=== PATIENT | female | born 1995 | race Caucasian/White ===

== ENCOUNTER 2022-03-04 11:08 | Outpatient (CLI) | payer OTHER, SELFPAY ==
--- NOTE | ~2022-03-04 | XR_ITS ---
EXAMINATION: XR barium swallow DATE: 03/04/2022 12:42 CDT INDICATION: Emesis. TECHNIQUE: Thick barium contrast with gas effervescent crystals were administered orally. Fluoroscop ic images of the esophagus were obtained in various projections. The hypopharynx was also examined. T hereafter, overhead images of the thoracic esophagrus were performed. Fluroscopy time 0.4 minutes.Dap 9.4 FINDINGS: The esophagus is normal in caliber, without mucosal lesions or strictures. There is normal esophageal peristalsis. There is no hiatal hernia. No discreet episode of gastroesophageal reflux i s seen during the course of this study. IMPRESSION: 1. Normal barium esophagram. Reviewed, dictated and finalized at location A.
== END 2022-03-04 11:09 | disposition home or self-care (01) ==
PROVIDERS: PCP Family Medicine; Visit Provider Family Medicine
DX: K30 Functional dyspepsia (principal)
CPT/HCPCS: 74220

== ENCOUNTER 2022-03-06 09:12 | Outpatient (CLI) | payer OTHER, SELFPAY ==
--- NOTE | ~2022-03-06 | NM_ITS ---
EXAM: NM gastric emptying study DATE: 03/06/2022 14:10 CDT INDICATION: Persistent vomiting and indigestion after meals. TECHNIQUE: A gastric emptying study was performed using the methodology of Jes DESIR, et al. J Nucl Med 2007; 48:568-572. The patient was given a meal consisting of 2 scrambled eggs labeled with 1.06 mCi Tc-99m sulfur colloid, 2 slices of toast, two packages of jam, and approximately 120 mL of water. Simultaneous anterior and posterior 1-min images of the abdomen were obtained with the patient supin e at multiple time points over a total period of 4 hours. The geometric mean of anterior and posterio r views was determined, and the percentage retention was calculated for each time point. COMPARISON: None. FINDINGS: Gastric retention of the radiotracer-labeled meal was 39%, 25%, and 7% at the 1-hour, 2-ho ur, and 4-hour time points, respectively. With this technique, apparent rapid gastric emptying is sug gested by <30% gastric retention at 1 hour. Delayed gastric emptying is defined by gastric retention of >90% at 1 hour, >60% retention at 2 hours, or >10% retention at 4 hours. IMPRESSION: 1. Normal gastric emptying. Reviewed, dictated and finalized at location A. IMPRESSION: 1. Normal gastric emptying.
== END 2022-03-06 09:13 | disposition home or self-care (01) ==
LOC: ANHIMG 09:13
PROVIDERS: PCP Family Medicine; Visit Provider Family Medicine
DX: K30 Functional dyspepsia (principal); R11.15 Cyclical vomiting syndrome unrelated to migraine
CPT/HCPCS: 78264; A9541

== ENCOUNTER 2022-04-09 08:00 | Outpatient (CLI) | payer OTHER, SELFPAY ==
--- NOTE | 2022-04-24 10:14 | WPDHOMESLEEP ---
Sleep Study - Home Unattended Date of Study: 04/09/22 Ordering Provider: Eve Raymond DO Interpreting Provider: Eve Raymond DO Home Sleep Study Type: Apnea Link Air Height: 1.68 m Weight: 111.13 kg Body Mass Index: 39.5 Neck Circumference (inches): 15 [place]: 10 Reason for Sleep Study Daytime hypersomnia Sleep History The patient is a 27-year-old female with anxiety, depression, PTSD, nightmares, GERD, migraines and history of tobacco use that had a sleep study ordered for evaluation of sleep apnea. The patient denies awakening from sleep short of breath. She constantly awakens at night with heartburn, belching or cough. She constantly snores loud enough that others complain. She constantly has trouble sleeping she has a cold. She denies waking up gasping for air throughout the night. She denies having breathing problems at night observed by herself or others. He frequently sweats excessively at night. She denies having heart palpitations or irregular heartbeats during the night. She constantly falls asleep during the day but never while driving. She occasionally experiences loss of muscle tone when extremely emotional. She constantly has to work or school due to sleepiness. She denies feeling unable to move while waking up or falling asleep. She occasionally experiences vivid dreamlike scenes upon awakening or falling asleep. She denies feeling afraid of going to sleep. She constantly has nightmares. She occasionally remembers her dreams. She rarely has thoughts racing through her mind. She occasionally feels sad or depressed. She constantly has anxiety. She constantly has muscular tension. She constantly notices parts of her body jerk. She denies kicking during the night. She rarely has crawling and aching feelings in her legs but occasionally has leg pain during the night. She denies grinding her teeth during sleep and awakening with morning jaw pain. She is rarely bothered by pain during the day but never awakened by pain during the night. She rarely wakes up feeling stiff in the morning. She rarely wakes up with sore achy muscles. She rarely wakes up with pain in the neck, spine or other joints. She goes to bed between 10-11 p.m. on weekdays and between 11:00 p.m. to 1:00 a.m. on weekends. Takes her 15-30 minutes to fall asleep. He wakes up 3-4 times throughout the night to urinate. She is able to fall back asleep within 5-15 minutes. She wakes up between 6-7 a.m. on weekdays and between 8-10 a.m. on the weekends. She typically gets 6-8 hours of sleep per night. He does not stay in bed after waking up in the morning she currently lives with her father, isabel and 8-year-old son. She does not consume any caffeinated beverages within 2 hours of bedtime. She does not engage in physical exercise before bedtime. She will watch television before falling asleep. She will take naps in afternoon or the evening but they are not refreshing. She drinks 1 caffeinated beverage per day. She quit smoking cigarettes 5 years ago. She denies alcohol use. She currently uses marijuana. [facility] Past Medical History Medical History Anxiety GERD (gastroesophageal reflux disease) Headache Family History Family History Father Depression Hypertension Sibling Alcoholism Hypertension Depression Grandparent Cerebrovascular accident Thyroid disorder Social History Social History Smoking status: Former smoker Smoking end date: 06/15/18 Alcohol intake: current Substance use: current Substance use type: marijuana Medications Home Medications Medication Instructions Recorded Confirmed Type bupropion HCl 300 mg 24 hr tablet, 300 mg PO QAM 02/26/22 02/26/22 History extended release (Wellbutrin XL) clonazepam
[2022-04-24 10:25] VITALS: BMI 39.5
--- NOTE | 2022-09-23 11:28 | SLEEP ---
pt was not set up previously with machine phoned [facility] they phoned pt she now has a cpap set up appt at 245 pm 09/23/2022
== END 2022-04-10 14:52 | disposition home or self-care (01) ==
LOC: ANHCSM 08:01
PROVIDERS: PCP Family Medicine; Visit Provider Family Medicine
DX: G47.10 Hypersomnia, unspecified (principal); G47.33 Obstructive sleep apnea (adult) (pediatric)
CPT/HCPCS: 95806

== ENCOUNTER 2024-11-07 09:46 | Emergency (ER) | payer OTHER, SELFPAY ==
--- NOTE | ~2024-11-07 | XR_ITS ---
HISTORY: knee pain COMPARISON: None TECHNIQUE: 3 views of the left knee were performed FINDINGS: No acute or subacute fracture, erosion, lytic or sclerotic lesion. Trace medial tibiofemoral joint space narrowing is identified. No suprapatellar joint effusion is identified. The infrapatellar joint space is clear. IMPRESSION: Trace medial tibiofemoral joint space narrowing, without acute fracture. Reviewed, dictated and finalized at location A. IMPRESSION: Trace medial tibiofemoral joint space narrowing, without acute fra cture.
[2024-11-07 09:47] VITALS: BP 143/92; PULSE 99; RESP 20; TEMP 36.4; O2SAT 100
--- OUTSIDE RECORDS SUMMARY | 2024-11-07 09:48 | XMS_ITS | Clinical Summary ---
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 Gender Identity Not on file Sexual Orientation Not on file Plan of Treatment Health Maintenance Due Date Last Done Comments Hepatitis C Virus (HCV) Screening 1996 TdaP Immunization 1996 Hepatitis B Immunization (1 of 3 - 19+ 3-dose series) 2015 Pap Smear 2017 Influenza Immunization (#1) 2024 SARS-COV-2 Immunization ( season) 2024 Respiratory Syncytial Virus (RSV) Immunization (Adult) (1 - 1-dose 75+ series) 2071 Meningococcal Immunization (ACWY) Aged Out No longer eligible based on patient's age to complete this topic Pneumococcal Immunization Combined Aged Out No longer eligible based on patient's age to complete this topic Rotavirus Immunization Aged Out No lo nger eligible based on patient's age to complete this topic
--- OUTSIDE RECORDS SUMMARY | 2024-11-07 09:48 | XMS_ITS | Clinical Summary ---
Author Organization [facility] Address [address] [place] [address] Care Team Providers Care Automotive Hardware Engineer Name Role Phone Unavailable Primary Care Provider Unavailabl e Source Comments [facility],non-owned Affiliates and Associated Physician Practices is amultiple site organization consisting of ambulatory clinics and hospital sitesin [place], [place], [place] and [place]. This disclosure is being madepursuant to the Care Everywhere program and may not contain all information available regarding this patient. Last updated [email or web address] [facility] Allergies No known active allergies Medications * Be aware that medications may not be up to date on this document. Alwaysverify current medications with the patient. prazosin (MINIPRESS) 2 MG capsule Take 2 mg by mouth at bedtime Active clonazePAM (KLONOPIN) 0.5 MG tablet Take 1 mg by mouth as directed 1 mg AM, 1 mg Afternoon, 2mg PM Active topiramate (TOPAMAX) 50 MG tablet Take 50 mg qhs x 1 week and then 50 mg BID 60 tablet 5 8 Active Additional Information Patient not taking.Reported on 02/10/2019 tranexamic acid (LYSTEDA) 650 MG tablet Take 2 tablets by mouth 3 times daily 90 tablet 11 9 Active Additional Information Patient not taking.Reported on 02/27/2020 ondansetron, disintegrating, (ZOFRAN ODT) 8 MG tablet Take 1 tablet by mouth every 6 hours as needed for Nausea/Vomiting Allow tablet to dissolve on the tongue 20 tablet 2 9 Active Additional Information Patient not taking.Reported on 02/27/2020 lamoTRIgine (LAMICTAL) 200 MG tablet Take 1 tablet by mouth once daily 0 Active venlafaxine XR 24hr (EFFEXOR XR) 150 MG capsule 0 Active Active Problems Problem Noted Date Diagnosed Date Heart abnormality 09/28/2019 Migraine 03/02/2019 Heartburn 03/02/2019 Sacral radiculopathy 03/02/2019 Fatigue 06/01/2017 Pain of both hip joints 06/01/2017 Positive SAMMY (antinuclear antibody) 06/01/2017 Syncope 12/29/2013 Assessment & Plan (12/29/2013 2:43 PM CDT): IMPRESSION Anyi is a 18 year-old with: 1. Structurally normal heart by exam, ECG, and echocardiogram. A. Mild aortic regurgitation. 2. Probable vasovagal syncope. PLAN Anyi has a structurally normal heart by exam, ECG, and echocardiogram, with the incidental finding of mild aortic regurgitation (which I cannot hear on exam, and which is unrelated to her syncope). Her syncope is likely consistent with vasovagal syncope in that the episode has a typical prodrome of nausea, feeling warm, and dizziness. Her normal cardiac evaluation today is very reassuring. I emphasized the importance of maintaining adequate hydration, especially during the summer months and during times of acute illnesses. She does complain of daily palpitations, for which I had her go home wearing a Holter monitor to exclude any arrhythmias; I will follow up with her once I review the monitor. Finally, I also ordered a fasting lipid profile given her family history of early myocardial infarction and her vague episode of hemiparesis last winter. I asked her to return to clinic in 1 years' time to follow up on her aortic regurgitation with an ECG and echocardiogram. In the meantime, she has no restrictions from a cardiovascular standpoint regarding routine care or activity. SBE prophylaxis is not indicated. Family History Medical History Relation Name Comments Migraine Mother Relation Name Status Comments Father Alive Mother Alive Social History Tobacco Use Types Packs/Day Years Used Date Smoking Tobacco: Light Smoker Cigarettes 0.3 3 Smokeless Tobacco: Never Tobacco Cessation:Ready to Q uit: No; Counseling Given: Yes Alcohol Use Standard Drinks/Week Comments No 0 (1 standard drink = 0.6 oz pur e alcohol) Comments Unknown Sex and Gender Information Value Date Recorded Sex Assigned at Not on file Legal Sex Female 4:02 PM CDT Gender Identity Not on file Sexual Orientation Not on file Last Filed Vital Signs Vital Sign Reading Time Taken Comments Blood Pressure 120/80 03/02/2019 1:59 PM CDT Pulse 62 12/15/2017 10:03 AM CDT Temperature 36.2 C (97.2 F) 12/15/2017 10:03 AM CDT Respiratory Rate 20 07/14/2017 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 Oxygen Saturation 98% 07/27/2017 4:46 PM ASSISTANT PROFESSOR OF FORESTRY Inhaled Oxygen Concentration - - Weight 98.9 kg (218 lb) 03/04/2019 4:13 PM CDT Height 165.1 cm (5' 5) 03/02/2019 1:59 PM CDT Body Mass Index 36.28 03/02/2019 1:59 PM CDT Plan of Treatment Health Maintenance Due Date Last Done Comments HIV SCREENING 2011 DTAP/TDAP/TD VACCINES (1 - Tdap) 2015 HEPATITIS B VACCINE (1 of 3 - 19+ 3-dose series) 2015 COVID-19 VACCINE (1 - 2023-2 5 season) 2024 DEPRESSION SCREENING 06/15/2024 INFLUENZA VACCINE (Season Ended) 2025 ZOSTER VACCINE (1 of 2) 2046 HEPATITIS C SCREENING Completed 02/16/2020 , 07/09/2017 HIB VACCINE Aged Out No longer eligi ble based on patient's age to complete this topic HPV VACCINE Aged Out No longer eligi ble based on patient's age to complete this topic MENINGOCOCCAL (Group B) VACCINE SHARED DECISION-MAKING Aged Out No longer eligible based on patient's age to complete this topic MENINGOCOCCAL GROUPS A/C/Y/W VACCINE Aged Out No longer eligible b ased on patient's age to complete this topic PNEUMOCOCCAL VACCINE Aged Out No long er eligible based on patient's age to complete this topic Procedures Procedure Name Priority Date/Time Associated Diagnosis Comments HEPATITIS C AB W RFLX VERIFICATION Routine 02/16/2020 12:31 PM CDT Positive SAMMY (antinuclear antibody) Myalgia Other fatigue Polyarthralgia from Last 3 Months or Most Recently Relevant to Health Maintenance Results * HEPATITIS C AB W RFLX VERIFICATION (02/16/2020 12:31 PM CDT) Hepatitis C Antibody <0.1 0.0 - 0.9 s/co ratio 02/17/2020 10:10 AM CDT [facility] ([facility]) Blood BLOOD SPECIMEN / Unknown Lab Venipuncture / Unknown 02/16/2020 12:31 PM CDT 02/16/2020 1:09 PM CDT Narrative [facility] ([facility]) - 02/17/2020 10:10 AM CDT [facility] [address] [place], [place] [id number] Cargo Services Coordinator: Raza Serra PhD, Phone: [phone] us Francheska Fried MD LAB - CHEMISTRY ORDERA TRAES Final Result [facility] ([facility]) [address] [place] [address] from Last 3 Months or Most Recently Relevant to Health [place] [address] [place] [address] [facility]
--- NOTE | 2024-11-07 10:10 | ED.GENADULT ---
HPI - General Adult General Chief complaint: Extremity Injury, Lower Stated complaint: left knee pain, reports dislocation Time Seen by Provider: 11/07/24 09:52 History of Present Illness HPI narrative: 29-year-old female present to the emergency department for evaluation for suspicion of a left lateral patellar dislocation. Patient reports he has had this happen multiple times and patient has had previous follow-up with Orthopedics. Patient states that she was walking upstairs and felt the left knee lock up and then as she was getting into bed she felt that the patella went left lateral. Patient states she was able to get back into place. Patient presents emergency department complaining left knee pain with no deformity. Related Data Home Medications ?Medication ?Instructions ?Recorded ?Confirmed ?Last Taken ?Type bupropion HCl 300 mg 24 hr tablet, 300 mg PO QAM 02/26/22 02/26/22 Unknown History extended release (Wellbutrin XL) clonazepam 2 mg tablet 2 mg PO TID 02/26/22 02/26/22 Unknown History famotidine 20 mg tablet (Pepcid) 20 mg PO DAILY 02/26/22 02/26/22 Unknown History paroxetine HCl 40 mg tablet 40 mg PO DAILY 02/26/22 02/26/22 Unknown History prazosin 2 mg capsule 2 mg PO BID 02/26/22 02/26/22 Unknown History Allergies Allergy/AdvReac Type Severity Reaction Status Date / Time No Known Allergies Allergy Verified 11/07/24 09:54 Review of Systems Review of Systems: All systems reviewed & are unremarkable except as noted in HPI and below PMFSH Past Medical History Medical History Anxiety GERD (gastroesophageal reflux disease) Headache Family History Family History Father Depression Hypertension Sibling Alcoholism Hypertension Depression Grandparent Cerebrovascular accident Thyroid disorder Social History Social History Smoking status: Former smoker Smoking end date: 06/15/18 Alcohol intake: current Substance use: current Substance use type: marijuana Exam Narrative: APPEARANCE: Uncomfortable HEAD: normocephalic, atraumatic. EYES: PERRLA/EOMI, conjunctivae clear. NOSE: Normal no drainage EARS:TMS clear with good light reflex. THROAT: Pharynx clear, no exudate. NECK: Supple. No adenopathy, no masses. RESPIRATORY: Airway patent, respirations nonlabored. Clear to auscultation bilaterally, no rales, rhonchi, wheezing. CARDIOVASCULAR: Regular rate and rhythm without murmurs rubs or gallops. ABDOMINAL: Soft, nontender, nondistended, normal bowel sounds MUSCULOSKELETAL: Left knee tenderness to palpation with no gross deformity, anterior located patella, neurovascularly intact NEURO: Alert. Cranial nerves II through XII intact. Grossly intact SKIN: Warm, dry. Normal Color Course Vital Signs Vital signs: Vital Signs Temperature 97.5 F L 11/07/24 09:47 Pulse Rate 99 11/07/24 09:47 Respiratory Rate 20 11/07/24 09:47 Blood Pressure 143/92 H 11/07/24 09:47 Pulse Oximetry 100 11/07/24 09:47 Oxygen Delivery Room Air 11/07/24 09:47 Temperature 97.5 F L 11/07/24 09:47 Pulse Rate 62 11/07/24 12:02 Respiratory Rate 17 11/07/24 12:02 Blood Pressure 128/81 11/07/24 12:02 Pulse Oximetry 98 11/07/24 12:02 Oxygen Delivery Room Air 11/07/24 09:47 Medical Decision Making MDM Narrative Medical decision making narrative: 21-year-old female presents to the emergency department for evaluation for recurrent left knee pain. Patient suspects that she did have a left lateral dislocation for patella and was able to replace it herself. Upon arrival emergency department patient had no subluxation or dislocation of the patella. X-rays were negative for acute findings. Patient did feel improved with medications in the emergency department. Patient was provided knee immobilizer and crutches for limited weight-bearing. Patient does not have an orthopedic physician that she follows up with and she will be provided 1 at discharge. Differential Diagnosis Differential Diagnosis: Knee fracture, patellar dislocation, knee strain, internal derangement of left knee Vital Signs Vital Signs: Vital Signs Temperature 97.5 F L 11/07/24 09:47 Pulse Rate 99 11/07/24 09:47 Respiratory Rate 20 11/07/24 09:47 Blood Pressure 143/92 H 11/07/24 09:47 Pulse Oximetry 100 11/07/24 09:47 Oxygen Delivery Room Air 11/07/24 09:47 Temperature 97.5 F L 11/07/24 09:47 Pulse Rate 62 11/07/24 12:02 Respiratory Rate 17 11/07/24 12:02 Blood Pressure 128/81 11/07/24 12:02 Pulse Oximetry 98 11/07/24 12:02 Oxygen Delivery Room Air 11/07/24 09:47 Imaging Data Radiologist's impression: Impressions Knee X-Ray 11/07/24 11:12 IMPRESSION: Trace medial tibiofemoral joint space narrowing, without acute fracture. Discharge Plan Discharge Clinical Impression: Acute internal derangement of knee Patient Disposition: Home Condition: Stable Instructions: Antibiotic Form, Crutch Instructions (ED), Knee Immobilizer (ED) Additional Instructions: Knee immobilizer as directed. Crutches for limited weight-bearing. Tylenol and ibuprofen for pain control. Have close follow-up with your primary care physician and with Orthopedics. If you have any worsening symptoms then please call or return to the emergency department. Patient Language: Haitian Prescriptions: No Action clonazepam 2 mg tablet 2 mg PO TID prazosin 2 mg capsule 2 mg PO BID bupropion HCl [Wellbutrin XL] 300 mg tablet extended release 24 hr 300 mg PO QAM paroxetine HCl 40 mg tablet 40 mg PO DAILY famotidine [Pepcid] 20 mg tablet 20 mg PO DAILY eszopiclone [Lunesta] 2 mg tablet 2 mg PO QHS Qty: 1 0RF Rx Instructions: Use on night of sleep study. Follow-up/Referrals: Eve Raymond DO [Primary Care Provider] - Jonas Gan MD [Physician] -
[2024-11-07] MEDS: HYDROmorphone HCL INJ (*CRX) 2 MG/ML VIAL 1 MG IM (10:20)
[2024-11-07] MEDS: ONDANSETRON HCL ODT 4 MG TABLET PO (10:20)
[2024-11-07 11:02] VITALS: BP 135/77; RESP 57; O2SAT 99
--- OUTSIDE RECORDS SUMMARY | 2024-11-07 11:11 | XMS_ITS | Clinical Summary ---
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
--- OUTSIDE RECORDS SUMMARY | 2024-11-07 11:11 | XMS_ITS | Clinical Summary ---
Author Organization [facility] Address [address] [place] [address] Care Team Providers Care Job Change Crew Member Name Role Phone Unavailable Primary Care Provider Unavailabl e Source Comments [facility],non-owned Affiliates and Associated Physician Practices is amultiple site organization consisting of ambulatory clinics and hospital sitesin [place], [place], [place] and [place]. This disclosure is being madepursuant to the Care Everywhere program and may not contain all information available regarding this patient. Last updated 18.[employer] [facility] Allergies No known active allergies Medications * [...] CDT Respiratory Rate 20 07/14/2017 9:18 AM GRANTS DIRECTOR Oxygen Saturation 98% 07/27/2017 4:46 PM GRANTS DIRECTOR Inhaled Oxygen Concentration - - Weight 98.9 [...] s/co ratio 02/17/2020 10:10 AM CDT [facility] ([facility]) Blood BLOOD SPECIMEN / Unknown Lab Venipuncture / Unknown 02/16/2020 12:31 PM CDT 02/16/2020 1:09 PM CDT Narrative [facility] ([facility]) - 02/17/2020 10:10 AM CDT [facility]: [facility] [address] [place], [place] [id number] Cloth Boil Off Machine Operator: Raza Serra PhD, Phone: [phone] us Francheska Fried MD LAB - CHEMISTRY ORDERA TRAES Final Result [facility] ([facility]) [address] [place] [address] from Last 3 Months or Most Recently Relevant to [place] [address] [address] [place] [address] [facility]
[2024-11-07 12:02] VITALS: BP 128/81; PULSE 62; RESP 17; O2SAT 98
== END 2024-11-07 12:27 | disposition home or self-care (01) ==
PROVIDERS: Emergency Provider Emergency Medicine; PCP Family Medicine
DX: M23.92 Unspecified internal derangement of left knee (principal); K21.9 Gastro-esophageal reflux disease without esophagitis; F41.9 Anxiety disorder, unspecified; Z87.891 Personal history of nicotine dependence
CPT/HCPCS: 73562; 96372; 99283; A9270; J1171